=== PATIENT | female | born 1955 | race Caucasian/White ===

== ENCOUNTER 2016-07-23 13:35 | Outpatient (CLI) | payer MEDICARE ==
--- NOTE | 2016-07-23 19:02 | Diagnostic Imaging Report ---
DANYLELE GRIDER [facility] [address] [facility] [address] [place], [place]. [address] Report Submission Date: Jul 23, 2016 3:34:11 PM CDT Patient Study Name: NAYLA JOSEPH V Date: Jul 23, 2016 1:46:25 PM CDT Modality Type: US Gender: F Description: UNILAT LTD STDY EXT VEINS : 53 Institution: [facility] Physician: DANYELLE GRIDER Duplex imaging right lower extremity Clinical history: Pain. Rule out deep venous thrombosis. Technique: Real time sonography of the right lower extremity is performed in transverse and longitudinal views. Doppler interrogation and color flow imaging are additionally used. Findings: There are normal Doppler waveforms from the interrogated vessels with normal respiratory fluctuation and augmentation. There is no echogenic thrombus identified within the vessel lumen. The veins are normally compressible. Small fluid collection is evident in the medial proximal calf measuring approximately 4 x 20 mm. There is no internal blood flow within this on color-flow imaging. This may represent resolving hematoma. Impression: 1. No evidence of deep venous thrombosis. 2. Small fluid collection in the proximal medial calf. Electronically signed on Jul 23, 2016 3:34:11 PM CDT by: Ghanshyam FERREIRA
== END 2016-07-23 13:36 ==
LOC: RAD 13:35
PROVIDERS: ATTEND Family Medicine
DX: M79.604 Pain in right leg (principal)
CPT/HCPCS: 93971

== ENCOUNTER 2016-10-21 14:20 | Outpatient (CLI) | payer OTHER ==
--- NOTE | 2016-10-21 17:31 | Diagnostic Imaging Report ---
[facility] [id number] [facility].[address] [address] Report Submission Date: Oct 21, 2016 3:03:09 PM CDT Patient Study Name: NAYLA JOSEPH V Date: Oct 21, 2016 2:34:36 PM CDT Modality Type: CR Gender: F Description: LOWER EXTREMITY : 53 Institution: [facility] Physician: DANYELLE GRIDER - OP Examination: Plain film knee History: Knee discomfort Findings: 3 views of the knee demonstrates normal cortical margins. Mild tibial spine and patellar spurring. Medial joint space narrowing. No fracture. No dislocation. No joint effusion. No soft tissue irregularity. Impression: Moderate degenerative changes. No acute osseous abnormality. Electronically signed on Oct 21, 2016 3:03:09 PM CDT by: Carloz FERREIRA
== END 2016-10-21 14:25 | disposition home or self-care (01) ==
LOC: RAD 14:20
PROVIDERS: ATTEND Family Medicine
DX: M25.561 Pain in right knee (principal)
CPT/HCPCS: 73562